=== PATIENT | female | born 1965 | race Caucasian/White ===

== ENCOUNTER 2017-09-03 10:14 | Day surgery (SDC) | payer OTHER ==
[~2017-09-03] VITALS: Ht 162.6 cm; Wt 65.8 kg
[~2017-09-03 10:14] MED LIST: ASPIRIN325 MG PO; CALCIUM + D3 E1 EACH PO; CELEXA20 MG PO; INVEGA SUS156 MG/1 M IM; LIPITOR10 MG PO; PROVENTIL HFA6.7 GM IH; WOMEN'S 50 PLU1 EACH PO
[2017-09-03 10:56] VITALS: BP 105/60
[2017-09-03 11:07] LABS: BASOPHIL COUNT 0.1 K/uL (0-0.1); EOSINOPHIL (%) 2.9 % (0-5); EOSINOPHIL COUNT 0.1 K/uL (0-0.3); IMMATURE GRANULOCYTE (%) 0.2 % (0.0-0.7); INSTRUMENT ABS NEUTROPHIL CT 2.9 K/uL; LYMPHOCYTE COUNT 1.4 K/uL (1.0-2.8); MCH 32.1 PG (29.0-34.0); MCHC 33.7 G/DL (30.0-36.0); MCV 95.3 FL (83-99); MEAN PLAT.VOLUME 10.8 uM^3 (9.5-12.4); MONOCYTE (%) 5.4 % (3-12); MONOCYTE COUNT 0.3 K/uL (0-0.8); NEUTROPHIL (%) 61.4 % (45-76); NEUTROPHIL COUNT 2.9 K/uL (1.8-6.4); PLATELET COUNT 195 K/uL (156-360); RBC DIS.WIDTH-CV 12.7 % (11.8-14.6); RBC DIS.WIDTH-SD 44.6 % (39-53); WHITE BLOOD COUNT 4.8 K/uL (4.1-10.2)
[2017-09-03 13:55] VITALS: BP 94/56
[2017-09-03 14:54] VITALS: BP 100/56
[2017-09-05 09:24] LABS: INTERNAL CONTROL VALID? YES
== END 2017-09-03 15:00 | disposition home or self-care (01) ==
LOC: SDC 10:14
PROVIDERS: Obstetrics & Gynecology
DX: N84.1 Polyp of cervix uteri (principal); N85.01 Benign endometrial hyperplasia; N92.4 Excessive bleeding in the premenopausal period; I10 Essential (primary) hypertension; J45.909 Unspecified asthma, uncomplicated; E78.5 Hyperlipidemia, unspecified; Z79.82 Long term (current) use of aspirin; Z87.891 Personal history of nicotine dependence; Z80.0 Family history of malignant neoplasm of digestive organs
CPT/HCPCS: 84703; 85025; 88305; J1885; J2250; J2405; J3010